=== PATIENT | female | born 1970 | race African-American/Black ===

== ENCOUNTER 2017-01-15 18:14 | Inpatient (IN) | payer OTHER ==
--- NOTE | ~2017-01-15 | PA ---
Unit #: [id number] #: [id number] Patient: LILLIANA COLBERT [id number] [place] [address] [id number] I MR#: [id number] NAME: LILLIANA COLBERT ROOM: P122 Age: 47 Sex: F Admission Date: 01/15/2017 : 1970 Date of Assessment: Attending Physician: John Kramer M.D. Admitting Physician: John Kramer M.D. Primary Care Physician: Mag Whittington PSYCHIATRIC ASSESSMENT DATE OF SERVICE 01/16/2017. IDENTIFYING DATA Ms. Colbert is a 47-year-old single female, who is a resident of [place], [place] and was self-referred to the hospital on voluntary basis. CHIEF COMPLAINT "I need to get back on my medications and get stable." HISTORY OF PRESENT ILLNESS Ms. Colbert is a 47-year-old female with history of mood disorder, known to us from previous encounter and was self-referred back to the hospital stating that she has been off her medications, has been decompensating and that she needs to get back on medications and to get stable and stated that she is having hallucinations and she needs to talk with a doctor and that she needs to get back on her medications. The patient stated that she stayed 3 days by herself in her home and she could not handle it and reports that she has had suicidal ideation on and off throughout her life and that she has said a lot of stuff that she does not remember despite her being told by others and that she has engaged in self-harm and stated that she cannot be by herself and the voices were telling her that she needs to be in the hospital. She stated the voices were telling her to hurt herself or hurt somebody else and was seen to be a danger to self and others and as such, recommendation for inpatient level of care was made and the patient was transferred to us. SUBSTANCE ABUSE HISTORY The patient has a history of alcohol, cannabis, and cocaine abuse and reports that her last use of crack cocaine was 3 days ago. PAST PSYCHIATRIC HISTORY The patient has had a history of multiple inpatient psychiatric hospitalizations including being at [facility], [facility] as well as outpatient treatment at [facility] and review of the medical records indicate that she was on medication, but has been noncompliant with medications and as such, has been decompensating. PAST MEDICAL HISTORY The patient's medical history is significant for eczema. Unit #: [id number] #: [id number] Patient: LILLIANA COLBERT ALLERGIES Risperdal. PERSONAL AND SOCIAL HISTORY A 47-year-old female, who reports that she is single, unemployed, and has poor social support system. MENTAL STATUS EXAMINATION Middle-aged female, who was casually dressed with fair personal hygiene, appears to be in no acute distress or discomfort. She was awake and alert on interaction with intact orientation to time, place, and person. Her mood was anxious and depressed with a congruent affect. Her speech was slow and tangential. Her thought processes were disorganized with some looseness of associations and flight of ideas. Her insight and judgment remain significantly impaired. DIAGNOSTIC IMPRESSION Psychiatric: Schizoaffective disorder, bipolar type, most recent episode depressed, recurrent, moderate, with psychosis; cocaine dependence, moderate. Medical: Eczema. Stressors: Moderate psychosocial stressors. TREATMENT PLAN 1. The patient has presented with a history of mood disorder and psychosis and has been decompensating and will need inpatient hospitalization for safety and stabilization. We will start her back on her home medications and we will adjust the medications and monitor response. 2. Supportive therapy was provided to the patient. 3. Safe, structured, and nourishing environment will be provided. ESTIMATED LENGTH OF STAY 4 to 5 days. ABILITY TO HELP SELF Limited. WILLINGNESS TO HELP SELF The patient appears to be willing to help self. STRENGTHS 1. Communicative. 2. Cooperative. PROBLEMS 1. Chronic dysphoric symptoms. 2. Poor social support system. DISCHARGE CRITERIA This will be contingent upon the patient's ability to show resolution of her depression and psychosis as well as her ability to stay safe to herself, particularly after discharge from the hospital. Dictated by... John Kramer M.D. Unit #: [id number] #: [id number] Patient: LILLIANA COLBERT IAA/modl TD: 01/16/2017 07:15 JOB #: [id number] PSYCHIATRIC ASSESSMENT X John Kramer MD PSYCHIATRIC ASSESSMENT
--- NOTE | ~2017-01-15 | PN ---
Unit #: [id number] #: [id number] Patient: LILLIANA RIBERA [id number] [facility] [address] [place] [address] [id number] I MR#: [id number] NAME: LILLIANA RIBERA ROOM: P209 Age: 47 Sex: F Admission Date: 01/15/2017 : 1970 Attending Physician: John Kramer M.D. Admitting Physician: John Kramer M.D. Primary Care Physician: Mag ABBOTT PROGRESS NOTES DATE 01/19/2017 DISCUSSION Ms. Cyr is a 47-year-old female who was seen today and chart was reviewed and case was discussed with the staff. She has been anxious, withdrawn though has not shown any agitation, irritability and has been cooperative with treatment recommendations as she has been taking the medications and tolerating them fairly well. MENTAL STATUS EXAMINATION Middle-aged female who was casually dressed with fair personal hygiene, appears to be in no acute distress or discomfort. She was awake and alert on interaction with intact orientation. Her mood was anxious with congruent affect. She denies any suicidal or homicidal ideations. Her insight and judgement remains slightly impaired. TREATMENT PLAN 1. We will continue her on her current medications and treatment protocol. We will monitor her response and make further adjustments as needed. 2. We will continue to follow up. Dictated by... Conor Arnold/rebeca TD: 01/22/2017 04:14 JOB #: [id number] Unit #: [id number] #: [id number] Patient: LILLIANA RIBERA [facility] PROGRESS NOTES X John Kramer MD X PROGRESS NOTE
--- NOTE | ~2017-01-15 | DS ---
Unit #: [id number] #: [id number] [facility] [id number] [facility] [address] [place] [address] [id number] MR#: [id number] NAME: LILLIANA COLBERT ROOM: P209 Age: 47 Sex: F Admission Date: 01/15/2017 : 1970 Discharge Date: 01/22/2017 Attending Physician: John Kramer M.D. Primary Care Physician: Mag Whittington DISCHARGE SUMMARY IDENTIFYING DATA Ms. Colbert is a 47-year-old single female, who was known to us from previous encounter, was self-referred to the hospital. DISCHARGE DIAGNOSES Psychiatric: Bipolar disorder, most recent episode depressed, recurrent, moderate, without psychotic features; cocaine dependence, moderate. Medical: None. Stressors: Moderate psychosocial stressors. HISTORY OF PRESENT ILLNESS Please see initial psychiatric evaluation for details. PAST PSYCHIATRIC HISTORY Please see initial psychiatric evaluation for details. PAST MEDICAL HISTORY Please see initial psychiatric evaluation for details. HOSPITAL COURSE The [facility] and was oriented to the hospital environment. Routine p.r.n. medications were initiated, and she was started back on her home medications and medications were adjusted and she was closely monitored. She was taking the medications regularly and was tolerating them fairly well and was able to show a decent and therapeutic response and was willing to continue treatment on an outpatient basis and as such, it was decided that she will be discharged home and will continue treatment on an outpatient basis. DISCHARGE MEDICATIONS Latuda 40 mg in the evening for bipolar, Zoloft 100 mg in the morning for depression, trazodone 100 mg at bedtime for sleep. DISCHARGE CONDITION Stable. PROGNOSIS Fair. Dictated by... John Kramer M.D. Unit #: [id number] #: [id number] Patient: LILLIANA COLBERT IAA/modl TD: 01/23/2017 00:05 JOB #: [id number] DISCHARGE SUMMARY X John Kramer MD X DISCHARGE SUMMARY
--- NOTE | ~2017-01-15 | HP ---
Unit #: [id number] #: [id number] Patient: KLARISSA RIBERA [id number] [place] [address] [id number] I MR#: [id number] NAME: KLARISSA RIBERA ROOM: P122 Age: 47 Sex: F Admission Date: 01/15/2017 : 1970 Attending Physician: John Kramer M.D. Admitting Physician: John Kramer M.D. Primary Care Physician: Mag Whittington HISTORY AND PHYSICAL HISTORY OF PRESENT ILLNESS Klarissa is a 47 year old admitted to [address] [place] [address]. She has been noncompliant with her psychiatric medications. She has had other admissions to this facility for treatment of the same. PAST MEDICAL HISTORY 1. Obesity. 2. History of illicit substance abuse to include crack cocaine. 3. History of alcohol abuse. 4. Eczema. PAST SURGICAL HISTORY Nothing reported. ALLERGIES No known drug allergies. SOCIAL HISTORY Smokes 1 pack per day. Has a history of alcohol abuse and admits using crack cocaine. FAMILY HISTORY Medically noncontributory. REVIEW OF SYSTEMS CONSTITUTIONAL: No fever or chills. HEENT: Denies any sore throat, ear pain or runny nose. CARDIOVASCULAR: Denies chest pain, irregular heart rhythm or palpitations. CHEST: Denies shortness of breath or cough. No hemoptysis. GASTROINTESTINAL: Denies nausea, vomiting, diarrhea or chronic constipation. ENDOCRINE: Denies history of increased thirst or urination. No recent significant weight loss or gain. GENITOURINARY: Denies dysuria, frequency, or hematuria. SKIN: Denies any rashes. HEMATOLOGIC: Denies history of increased bleeding or bruising. MUSCULOSKELETAL: Denies any hot, swollen joints. No generalized muscle pain. NEUROLOGIC: Denies problems with vision or speech. No frequent, severe headaches. No numbness, tingling or weakness in any extremities. Denies loss of bladder or bowel control. CURRENT MEDICATIONS Unit #: [id number] #: [id number] Patient: KLARISSA RIBERA 1. Milk of Magnesia p.r.n. 2. Maalox p.r.n. 3. Tylenol p.r.n. 4. Desyrel 100 mg q.h.s. 5. Latuda 40 mg daily. 6. Zoloft 100 mg daily. 7. Claritin 10 mg daily. 8. Protonix 40 mg daily. PHYSICAL EXAMINATION GENERAL: Alert, well-nourished, in no apparent distress. VITAL SIGNS: Blood pressure 100/68, heart rate 80, respirations 16, temperature 98.6. WEIGHT: 190. HEIGHT: 5 feet 6 inches. SKIN: Warm and dry without rash or lesion. HEENT: Normocephalic. TMs not viewed. Oral and nasal passages clear. Conjunctivae clear. PERRLA. EOMs intact. NECK: Supple without lymphadenopathy or thyromegaly. HEART: Regular rate and rhythm without murmur. LUNGS: Clear. ABDOMEN: Soft, nontender. : Not done. EXTREMITIES: No evidence of cyanosis, clubbing or edema. Moves all without focal deficit. NEUROLOGICAL: Grossly within normal limits. Cranial Nerves: II: Visual galvez are intact. III, IV AND : Extraocular movements are intact. Pupils are equal, round and reactive to light. V: Facial sensation is grossly normal. VII: Facial movements and expression are normal. VIII: Auditory acuity grossly intact. IX, X: Uvula is midline. Phonation is normal. XI: Patient shrugs shoulders and turns head normally. XII: Tongue protrudes in the midline. Sensory and Motor Function: Sensory and motor sensation is grossly normal. Motor: moves all extremities well. Coordination: Gait is normal. Deep Tendon Reflexes: Intact. IMPRESSION Psychiatric admission. RECOMMENDATIONS PSYCHIATRIC: Per psychiatrist. MEDICAL: See no contraindications to participate in facility's activities. MEDICAL PROGNOSIS Good. MEDICAL CONDITION Stable. Dictated by... Sandy Mckinney P.A.-C. for Conor Saravia/[facility] Unit #: [id number] #: [id number] Patient: KLARISSA RIBERA TD: 01/16/2017 15:58 JOB #: [id number] HISTORY AND PHYSICAL X Sandy Mckinney HISTORY AND PHYSICAL
--- NOTE | ~2017-01-15 | PN ---
Unit #: [id number] #: [id number] Patient: LILLIANA COLBERT [id number] [facility] [address] [place] [address] [id number] I MR#: [id number] NAME: LILLIANA COLBERT ROOM: P209 Age: 47 Sex: F Admission Date: 01/15/2017 : 1970 Attending Physician: John Kramer M.D. Admitting Physician: John Kramer M.D. Primary Care Physician: Mag ABBOTT PROGRESS NOTES DATE OF SERVICE 01/17/2017 DISCUSSION Ms. Colbert is a 47-year-old female with mood disorder and psychosis who was seen today. Chart was reviewed and case was discussed with the staff. She has been anxious, withdrawn, and rather seclusive to herself and has been exhibiting symptoms of depressive symptoms though she has been taking medications and tolerating them fairly well. MENTAL STATUS EXAMINATION Middle-aged female who is casually dressed with fair personal hygiene, appears to be in no acute distress or discomfort. She was awake and alert with impaired attention and concentration. Her mood is anxious with congruent affect. Speech is slow and restricted in content. Her thought processes were disorganized with some looseness of associations. Her insight and judgment remain slightly impaired. TREATMENT PLAN 1. We will continue her on her current medications and treatment protocol. We will monitor her response to the medications and make further adjustments as needed. 2. We will continue to follow up. Dictated by... Conor Arnold/pierre TD: 01/18/2017 09:49 JOB #: [id number] Unit #: [id number] #: [id number] Patient: LILLIANA COLBERT [facility] PROGRESS NOTES X John Kramer MD PROGRESS NOTE
--- NOTE | ~2017-01-15 | PN ---
Unit #: [id number] #: [id number] Patient: LILLIANA COLBERT [id number] [facility] [address] [place] [address] [id number] MR#: [id number] NAME: LILLIANA COLBERT ROOM: P209 Age: 47 Sex: F Admission Date: 01/15/2017 : 1970 Attending Physician: John Kramer M.D. Admitting Physician: John Kramer M.D. Primary Care Physician: Mag ABBOTT PROGRESS NOTES DATE 01/18/2017 DISCUSSION Ms. Colbert is a 47-year-old female who was seen today and chart was reviewed and case was discussed with the staff. She has been anxious, withdrawn, depressed and seclusive to herself. Meanwhile, she has been cooperative with treatment recommendations and has been taking medications and tolerating them fairly well with no reported side effects. MENTAL STATUS EXAMINATION Middle-aged female who was casually dressed with fair personal hygiene and appears to be in no acute distress or discomfort. She was awake and alert on interaction with intact orientation. Her mood was anxious and depressed with congruent affect. She reports having suicidal ideations as well as auditory hallucinations. Her insight and judgement remain slightly impaired. TREATMENT PLAN 1. Will continue on current medications and treatment protocol. Will monitor his response to the and make further adjustments as needed. 2. Will continue to follow up. Dictated by... Conor Arnold/shoaib TD: 01/19/2017 16:52 JOB #: [id number] Unit #: [id number] #: [id number] Patient: LILLIANA COLBERT PE[facility] PROGRESS NOTES X John Kramer MD PROGRESS NOTE
--- NOTE | ~2017-01-15 | PN ---
Unit #: [id number] #: [id number] Patient: LILLIANA COLBERT [id number] [facility] [address] [place] [address] [id number] MR#: [id number] NAME: LILLIANA COLBERT ROOM: P209 Age: 47 Sex: F Admission Date: 01/15/2017 : 1970 Attending Physician: John Kramer M.D. Admitting Physician: John Kramer M.D. Primary Care Physician: Mag ABBOTT PROGRESS NOTES DATE OF SERVICE: 01/21/2017 SUBJECTIVE Ms. Colbert is a 47-year-old female, who was seen today and chart was reviewed and the case was discussed with the staff. She has been anxious, withdrawn, and rather seclusive to herself. Meanwhile, she has been cooperative with the treatment recommendations and has been taking the medications and tolerating them fairly well with no reported side effects. MENTAL STATUS EXAMINATION Middle-aged female, who was casually dressed with a fair personal hygiene, appears to be in no acute distress or discomfort. She was awake and alert with impaired attention and concentration. Her mood was anxious with a congruent affect. She denies any suicidal or homicidal ideations. Her insight and judgment remain slightly impaired. TREATMENT PLAN 1. We will continue her on her current medications and treatment protocol. We will monitor her response to the medications and make further adjustments as needed. 2. We will continue to follow up. Dictated by... Conor Arnold/atilio TD: 01/23/2017 12:46 JOB #: [id number] [facility] PROGRESS NOTES X John Kramer MD PROGRESS NOTE
--- NOTE | ~2017-01-15 | PN ---
Unit #: [id number] #: [id number] Patient: LILLIANA COLBERT [id number] [facility] [address] [place] [address] [id number] MR#: [id number] NAME: LILLIANA COLBERT ROOM: P209 Age: 47 Sex: F Admission Date: 01/15/2017 : 1970 Attending Physician: John Kramer M.D. Admitting Physician: John Kramer M.D. Primary Care Physician: Mag ABBOTT PROGRESS NOTES DATE OF SERVICE: 01/20/2017 SUBJECTIVE Ms. Colbert is a 47-year-old female who was seen today and chart was reviewed, and case was discussed with the staff. She has been polite and pleasant, and cooperative with treatment recommendations and has been complaining of significant anxiety. Meanwhile, she has been coming to therapy groups and has been participating, and has been taking medications and tolerating them fairly well. MENTAL STATUS EXAMINATION Middle-aged female who was casually dressed with fair personal hygiene, appears to be in no acute distress or discomfort. She was awake and alert with impaired attention and concentration. Her mood was anxious with a congruent affect. She denies any suicidal or homicidal ideations. Her insight and judgment remain slightly impaired. TREATMENT PLAN We will continue on her current treatment protocol. We will monitor her response and make further adjustments as needed. Dictated by... Conor Arnold/atilio TD: 01/22/2017 04:07 JOB #: [id number] [facility] PROGRESS NOTES X John Kramer MD PROGRESS NOTE
[2017-01-16 12:24] LABS: BASOPHIL% 0.3 % (0-2.5); EOSINOPHIL% 0.2 % (0.0-7.0); HEMATOCRIT 34.3 % (35.0-45.0); HEMOGLOBIN 10.9 gm/dL (12.0-16.0); LYMPHOCYTE# 1.5 X10e3 (1.0-3.5); LYMPHOCYTE% 29.8 % (17.0-45.0); MEAN CELL VOLUME 83.5 FL (83-96); MEAN CORPUSCULAR HEMOGLOBIN 26.6 PG (28-34); MEAN CORPUSCULAR HGB CONC 31.8 g/dL (30-36); MEAN PLATELET VOLUME 8.3 FL (6.5-11.5); MONOCYTE# 0.5 X10e3 (0-1.0); MONOCYTE% 9.7 % (3.0-12.0); PLATELET COUNT 283 X10e3 (140-420); RED BLOOD COUNT 4.11 X10e (3.90-5.30)
[2017-01-16 12:25] LABS: DIFF IND NO
[2017-01-16 12:47] LABS: ALBUMIN SERUM 3.3 g/dL (3.5-5.0); ALKALINE PHOSPHATASE 74 U/L (32-92); ALT (SGPT) 15 U/L (10-40); AST (SGOT) 20 U/L (10-42); BILIRUBIN,TOTAL 0.3 mg/dL (0.2-2.0); BLOOD UREA NITROGEN 11 mg/dL (9-23); CALCIUM SERUM 8.7 mg/dL (8.4-10.2); CARBON DIOXIDE 27 mmol/L (22-31); CHLORIDE 106 mmol/L (100-111); GLOM FILT RATE Estimated ABOVE60 mL/min (>60); GLUCOSE FASTING 76 mg/dL (70-110); POTASSIUM 4.1 mmol/L (3.5-5.1); PROTEIN TOTAL SERUM 6.3 g/dL (6.0-8.3); SODIUM 141 mmol/L (135-145)
[2017-01-17 09:42] LABS: URINE APPEARANCE CLEAR; URINE BILIRUBIN NEG (NEG); URINE BLOOD NEG (NEG); URINE COLOR YELLOW; URINE GLUCOSE NEG (NEG); URINE KETONE NEG (NEG); URINE LEUKOCYTE ESTERASE NEG (NEG); URINE NITRATE NEG (NEG); URINE PH 5.5 (5-8); URINE PROTEIN NEG (NEG); URINE SPECIFIC GRAVITY 1.014 (1.003-1.035); URINE UROBILINOGEN 0.2 MG/DL (NEG)
[2017-01-17 10:20] LABS: AMPHETAMINE NEG (NEG); BARBITURATES NEG (NEG); BENZODIAZEPINES NEG (NEG); COCAINE NEG (NEG); MARIJUANA NEG (NEG); OPIATES NEG (NEG); TRICYCLIC ANTIDEPRESSANTS NEG (NEG); U METHADONE NEG (NEG)
== END 2017-01-22 10:00 | DRG 885 ==
LOC: P1S 18:14 → P2S 01-16 17:19
PROVIDERS: Psychiatry & Neurology Psychiatry
DX: F25.0 Schizoaffective disorder, bipolar type (principal); F14.20 Cocaine dependence, uncomplicated; F31.32 Bipolar disorder, current episode depressed, moderate; F29 Unspecified psychosis not due to a substance or known physiological condition; L30.9 Dermatitis, unspecified; E66.9 Obesity, unspecified; F17.200 Nicotine dependence, unspecified, uncomplicated
CPT/HCPCS: 80053; 80307; 81003; 84703; 85025